=== PATIENT | female | born 1995 | race Caucasian/White ===

== ENCOUNTER 2018-01-01 14:43 | Emergency (ER) | payer OTHER ==
[~2018-01-01] VITALS: Ht 160 cm; Wt 60.0 kg
[2018-01-01 14:50] VITALS: BP 113/76; PULSE 79; RESP 18; TEMP 98; O2SAT 99
[2018-01-01 15:34] LABS: BACTERIA, URINE OCC /hpf; BILIRUBIN, URINE NEG (NEG); BLOOD, URINE TRACE (NEG); GLUCOSE,URINE NEG (NEG); KETONE, URINE NEG (NEG); MUCUS URINE FEW /lpf (OCC); NITRITE,URINE POS (NEG); PH, URINE 5.5 (5.0-8.5); URINE COLOR YELLOW (YELLW/STRAW); URINE LEUKOCYTE ESTERASE LARGE (NEG)
[2018-01-01] MEDS ORDERED: PHEN0.4T PO (16:32)
[2018-01-01] MEDS ORDERED: NITR100C4 PO (16:32)
--- NOTE | 2018-01-01 16:33 | PD ---
HPI Chief Complaint: Complaint Time Seen by Provider: 16:23 Travel History International Travel<30 days: No Contact w/Intl Traveler<30days: No Traveled to known affect area: No History of Present Illness HPI Patient is a 22-year-old female presenting to the emergency department for evaluation of urinary symptoms. Patient states it started 2 days ago, she reports suprapubic cramping which she initially thought was related to her menstrual cycle which he does have completed. However after her cycle was over the cramping continued she also experienced burning and frequency. She states that she feels as if she has to go the bathroom every few minutes. She denies any nausea, vomiting, abdominal pain, fevers, back pain. Symptom onset was gradual, symptom severity is mild to moderate, there are no alleviating factors. PFSH Past Medical History Medical History: Denies Significant Hx ?: Not LMP: 12/28/17 Social History Alcohol Use: No Tobacco Use: No Substance Use: No Review of Systems Except as stated in HPI: all other systems reviewed are Neg General / Constitutional: No: Fever HENT: No: Headaches Cardiovascular: No: Chest Pain or Discomfort Respiratory: No: Shortness of Breath Gastrointestinal: No: Nausea, Abdominal Pain Genitourinary: Positive: Frequency, Dysuria, Pelvic Pain (Cramping) Physical Exam Narrative GENERAL: Well-developed, well-nourished, well-appearing female. Presenting in no acute distress. SKIN: Warm and dry. HEAD: Normocephalic. EYES: No scleral icterus. No injection or drainage. NECK: Supple, trachea midline. No JVD or lymphadenopathy. CARDIOVASCULAR: Regular rate and rhythm without murmurs, gallops, or rubs. RESPIRATORY: Breath sounds equal bilaterally. No accessory muscle use. GASTROINTESTINAL: Abdomen soft, non-tender, nondistended. MUSCULOSKELETAL: No cyanosis, or edema. BACK: Nontender without obvious deformity. No CVAT bilaterally. Data Data Last Documented VS Vital Signs Date Time Temp Pulse Resp B/P (MAP) Pulse Ox O2 Delivery O2 Flow Rate FiO2 01/01/18 14:50 98.0 79 18 113/76 (88) 99 Orders Orders Urinalysis - C+S If Indicated (01/01/18 14:52) Ed Urine Pregnancytest Poc (01/01/18 14:53) Urine Culture (01/01/18 14:55) Labs Laboratory Tests Test 01/01/18 14:55 Urine Color YELLOW Urine Turbidity CLEAR Urine pH 5.5 Urine Specific [place] 1.018 Urine Protein TRACE mg/dL Urine Glucose (UA) NEG mg/dL Urine Ketones NEG mg/dL Urine Occult Blood TRACE Urine Nitrite POS Urine Bilirubin NEG Urine Urobilinogen LESS THAN 2.0 MG/DL Urine Leukocyte Esterase LARGE Urine RBC 8 /hpf Urine WBC 44 /hpf Urine Bacteria OCC /hpf Urine Mucus FEW /lpf Microscopic Urinalysis Comment CULTURE INDICATED MDM Medical Decision Making Medical Screen Exam Complete: Yes Emergency Medical Condition: Yes Interpretation(s) Laboratory Tests Test 01/01/18 14:55 Urine Color YELLOW Urine Turbidity CLEAR Urine pH 5.5 Urine Specific [place] 1.018 Urine Protein TRACE mg/dL Urine Glucose (UA) NEG mg/dL Urine Ketones NEG mg/dL Urine Occult Blood TRACE Urine Nitrite POS Urine Bilirubin NEG Urine Urobilinogen LESS THAN 2.0 MG/DL Urine Leukocyte Esterase LARGE Urine RBC 8 /hpf Urine WBC 44 /hpf Urine Bacteria OCC /hpf Urine Mucus FEW /lpf Microscopic Urinalysis Comment CULTURE INDICATED Vital Signs Date Time Temp Pulse Resp B/P (MAP) Pulse Ox O2 Delivery O2 Flow Rate FiO2 01/01/18 14:50 98.0 79 18 113/76 (88) 99 Differential Diagnosis UTI versus pyelonephritis versus CVA versus Marifer versus STD versus other Narrative Course Patient is a 22-year-old female presenting to emergency department 2 days of urinary symptoms. Patient's vital signs are stable. Urinalysis shows a nitrate positive urinary tract infection, reflex culture is pending. Patient will be started on nitrofurantoin at this time. She is encouraged to increase oral fluid intake. Is encouraged to return to emergency department for any new worsening symptoms, she verbalized understanding of these instructions. Patient stable for discharge. Diagnosis Primary Impression: UTI (urinary tract infection) Qualified Codes: N39.0 - Urinary tract infection, site not specified; R31.9 - Hematuria, unspecified Referrals: [facility] Primary Care Physician Patient Instructions: General Instructions, Urinary Tract Infection in Women ( [place]) Additional Instructions: Increase fluid intake Complete full course of antibiotics as prescribed, even if you begin to feel better Follow-up with your primary doctor or at the [facility] clinic Return to emergency department for any new or worsening symptoms Med/Other Pt SpecificInfo: Prescription(s) given Scripts Nitrofurantoin Monohydrate Macrocrystals (Nitrofurantoin Monohydrate Macrocrystals) 100 Mg Cap 100 MG PO BID for Infection, #14 CAP 0 Refills Prov: Ina Hair 01/01/18 Phenazopyridine (Pyridium) 100 Mg Tab 100 MG PO Q8HR for Dysuria for 3 Days, TAB 0 Refills Prov: Ina Hair 01/01/18 Disposition: 01 DISCHARGE HOME Condition: Stable Ina Hair Jan 01, 2018 16:33
== END 2018-01-01 16:59 | disposition home or self-care (01) ==
LOC: NEPC 14:43
DX: N39.0 Urinary tract infection, site not specified (principal); B96.20 Unspecified Escherichia coli [E. coli] as the cause of diseases classified elsewhere
CPT/HCPCS: 81001; 84703; 87077; 87086; 87186; 99283